=== PATIENT | male | born 1960 | race Caucasian/White ===

== ENCOUNTER → 2017-08-08 | Outpatient (CLI) | payer OTHER ==
[~2017-08-08] MED LIST: ACETAMINOPHEN; AKWA TEARS EYE15 ML OP; ALIGN4 MG PO; ALLEGRA180 MG PO; AMLODIPINE BESY10 MG; APAP500 PO; ARTIFICIAL TEA1 EACH OP; ASPIR 8181 MG PO; ASPIRIN81 MG PO; CALCIUM CITRAT1 EA14 PO; CARDIZEM CD240 MG PO; CARVEDILOL3.125 MG PO; CIPROFLOXACIN500 M1 PO; CITRACAL-VIT D1 EACH PO; CITRUS CALCIUM1 EACH PO; CLARITIN10 MG PO; CLOTRIMAZOLE 1%15 G1 TOP; COLESTID1 GM PO; DEBROX OT; DEEP SEA NASAL44 M1 NS; DEPO-TESTO200 MG/1 M; DEPO-TESTO200 MG/1 M IM; DICLOFENAC SODI75 MG PO; DULCOLAX5 MG PO; ELOCON15 GM TP; EUCERIN CREME120 GM TOP; EXPECTORAN100 MG/5 M PO; FLONASE 0.05%50 MCG NASAL; GLUCOPHAGE500 MG PO; HUMULIN 70100 UNIT/2 SC; HYDROCODONE-AP1 EAC6 PO; HYTRIN 5 M5 MG/1 CAP PO; IMODIUM A-D1 MG/5 ML PO; IRON325 PO; KETOCONAZOLE15 GM TOP; KLOR-CON 1010 MEQ PO; LANTUS SC; LANTUS100 UNIT/M SUBQ; LANTUSSOLASTAR; LASIX 20 MG TAB20 MG PO; LEVAQUIN 500 M500 M2 PO; LEVAQUIN 750 M750 MG PO; LIPITOR10 MG PO; LISINOPRIL10 MG PO; LISINOPRIL20 MG PO; LOPERAMIDE 2 MG2 M1 PO; LOPERAMIDE2 MG PO; METAMUCIL PLUS1 EACH PO; METFORMIN 500500 MG PO; METFORMIN HCL500 MG PO; MINERIN CREME454 GM TP; MINIPRIN81 MG PO; MIRALAX17 GM PO; MOBIC15 MG PO; MUCINEX TA600 MG/TA2 PO; MUCINEX1200 MG PO; MUCINEX600 MG PO; NEOSPORIN OINTM15 GM TP; NORVASC5 MG PO; NOVOLIN 70100 UNIT/2 SQ; NOVOLOG100 UNIT/1; NOVOLOG100 UNIT/1 SC; NOVOLOG100 UNIT/1 SUBQ; NYAMYC15 GM TOP; OCUSOFT TP; ONDANSETRON HCL4 M2 PO; OSTERA TABLET1 EAC1 PO; OXCARBAZEPINE300 M1 PO; PEPTO-BISM262 MG/15 PO; PRILOSEC OTC20 MG PO; PRINIVIL20 MG PO; PROZAC20 MG PO; RISPERDAL2 MG PO; ROBITUSSIN100 MG/53 PO; SELRX180 ML TP; TOBRADEX EYE O3.5 GM OPHTHALMIC; TOBRAMYCIN SULFA5 ML OP; TOBRAMYCIN-DEXAM5 ML OP; TRAMADOL 50 MG50 MG PO; TRAZODONE HCL50 MG PO; TRIAMCINOLONE 080 G3 TOP; TRILEPTAL 300300 MG PO; VITAMIN D31000 UNI1 PO; VITAMIN D32000 UNIT PO; VITAMIN D3400 UNIT PO; VITAMIN D400 UNI1 PO; XARELTO15 MG PO; XARELTO20 MG PO; ZOCOR20 MG PO; ZOCOR40 MG PO; [UNRECOGNIZED DRUG - OTHER] TOP
--- NOTE | ~2017-08-08 | 2DMMODE ---
[facility] [place] [address] 2 D/M-MODE ECHOCARDIOGRAM Name: ANJELICA CAMERON Room #: REG COUNT INCLUDES [facility] [id number] Admission: 08/08/17 Attend Phys: Dick Brewster Discharge: Date of : 56 Date of Service: 08/08/17 1421 Report #: [id number] THIS REPORT FOR: //name// APPROVED REPORT Study performed: 08/08/2017 13:23:58 EXAM: Comprehensive 2D, Doppler, and color-flow Echocardiogram Patient Location: Out-Patient Status: routine BSA: 1.67 HR: 83 bpm BP: 164/62 mmHg Rhythm: NSR Other Information Study Quality: Adequate/mental retardation. Good compliance Indications Palpitations. HTN. Cardiomyopathy. 2D Dimensions RVDd: 32.30 mm LVEF(%): 29.95 (>50%) IVSd: 10.38 (7-11mm) LVOT Diam: 21.16 (18-24mm) LVDd: 44.20 mm PWd: 9.88 (7-11mm) Ascending Ao: 28.36 (22-36mm) LVDs: 38.03 (25-40mm) Aortic Root: 28.96 mm Heck's LVEF: 29.95 % Volumes Left Atrial Volume (Systole) Single Plane 4CH: 33.18 mL Single Plane 2CH: 40.49 mL LA ESV Index: 23.00 mL/m2 Aortic Valve AoV Peak Terrance.: 1.21 m/s AO Peak Gr.: 6.36 mmHg LVOT Max P.28 mmHg LVOT Max V: 0.76 m/s VU Vmax: 2.20 cm2 Mitral Valve E/A Ratio: 0.[address] [facility] [place] [address] [place] [address] 2 D/M-MODE ECHOCARDIOGRAM Name: RAKESHANJELICA [place] Room [facility] [id number] Admission: 08/08/17 Attend Phys: Dick Brewster Discharge: Date of : 56 Date of Service: 08/08/17 1421 Report #: [id number] MV Decel. Time: 120.34 ms MV E Max Terrance.: 0.65 m/s MV A Terrance.: 1.03 m/s MV PHT: 34.90 ms IVRT: 72.66 ms Pulmonary Valve PV Peak Terrance.: 1.30 m/s PV Peak Gr.: 6.74 mmHg Pulmonary Vein P Vein S: 0.55 m/s P Vein D: 0.38 m/s P Vein S/D Ratio: 1.45 Tricuspid Valve TR Peak Terrance.: 2.48 m/s TR Peak Gr.: 24.61 mmHg Left Ventricle The left ventricle is normal size. Regional wall motion abnormalities are noted. There is normal left ventricular wall thickness. Left ventricular systolic function is mild to moderately decreased. LVEF is 40-45%. Mild diastolic dysfunction is present (impaired relaxation pattern). Right Ventricle Right ventricle is not well visualized but appears grossly normal. Atria The left atrium size is normal. The right atrium size is normal. Aortic Valve The Aortic valve is mildly sclerotic. No aortic regurgitation is present. There is no aortic valvular stenosis. Mitral Valve Mitral valve leaflets are mildly thickened. Mild mitral regurgitation. No evidence of mitral valve stenosis. Tricuspid Valve The tricuspid valve is normal in structure. Mild to moderate tricuspid regurgitation. Estimated PAP is 25mmHg plus the right atrial pressure. [facility] [address] [place] [address] 2 D/M-MODE ECHOCARDIOGRAM Name: ANJELICA CAMERON RAQUEL Room #: REG Stephenie#: [id number] Admission: 08/08/17 Attend Phys: Dick Brewster Discharge: Date of : 56 Date of Service: 08/08/17 1421 Report #: [id number] Pulmonic Valve The pulmonary valve is normal in structure. Mild pulmonic regurgitation. Great Vessels The aortic root is normal in size. The ascending aorta is normal in size. The inferior vena cava is not well visualized. Pericardium No echocardiographic evidence of tamponade physiology <Conclusion> The left ventricle is normal size. LVEF is 40-45%. Regional wall motion abnormalities are noted. Right ventricle is not well visualized but appears grossly normal. The Aortic valve is mildly sclerotic. Mitral valve leaflets are mildly thickened. Mild mitral regurgitation. The tricuspid valve is normal in structure. Mild to moderate tricuspid regurgitation. Estimated PAP is 25mmHg plus the right atrial pressure. The pulmonary valve is normal in structure. Mild pulmonic regurgitation. No echocardiographic evidence of tamponade physiology <ELECTRONICALLY SIGNED> By: Jesus Chandler MD 08/08/17 1421 [id number] Jesus Chandler MD /INF
== END ==
LOC: CV 10:30
DX: I08.1 Rheumatic disorders of both mitral and tricuspid valves (principal); I10 Essential (primary) hypertension; I42.9 Cardiomyopathy, unspecified; I95.9 Hypotension, unspecified; E11.65 Type 2 diabetes mellitus with hyperglycemia; I63.9 Cerebral infarction, unspecified

== ENCOUNTER 2017-11-02 09:19 | Emergency (ER) | payer OTHER ==
[~2017-11-02] VITALS: Ht 157.5 cm; Wt 54.0 kg
[~2017-11-02 09:19] MED LIST changes: -ALIGN4 MG PO; -COLESTID1 GM PO; -EUCERIN CREME120 GM TOP; -IRON325 PO; -KETOCONAZOLE15 GM TOP; -LEVAQUIN 750 M750 MG PO; -METAMUCIL PLUS1 EACH PO; -MUCINEX1200 MG PO; -ONDANSETRON HCL4 M2 PO; -PROZAC20 MG PO; -TRAZODONE HCL50 MG PO; -[UNRECOGNIZED DRUG - OTHER] TOP
== END 2017-11-02 11:36 | disposition home or self-care (01) ==
LOC: ER 09:19
DX: S01.81XA Laceration without foreign body of other part of head, initial encounter (principal); I10 Essential (primary) hypertension; E11.9 Type 2 diabetes mellitus without complications; Z23 Encounter for immunization; W06.XXXA Fall from bed, initial encounter; Y93.89 Activity, other specified; Y92.89 Other specified places as the place of occurrence of the external cause; Y99.8 Other external cause status

== ENCOUNTER 2018-01-03 09:40 | Inpatient (IN) | payer OTHER ==
[2018-01-03] VITALS (7 sets, daily range): BP systolic 104–162; BP diastolic 55–79
[~2018-01-03] VITALS: Ht 152.4 cm; Wt 61.2 kg
--- NOTE | ~2018-01-03 | EKG ---
[address] [place] [address] ELECTROCARDIOGRAM REPORT Name: ANJELICA CAMERON EDRAQUEL Room #: 359-P ADM IN M.R.#: [id number] Admission: 01/03/18 Attend Phys: Celso Fermin MD Discharge: Date of : 56 Report #: [id number] THIS REPORT FOR: //name// [facility] ED Test Date: 2018-01-03 Test Time: 11:10:35 Pat Name: ANJELICA CAMERON Department: Room: Gender: M Loan Supervisor: : 1960 Requested By: Rober Sandoval Order Number: [id number] MD: Eber Loredo Measurements Intervals [place] Rate: 97 P: 56 NC: 208 QRS: -22 QRSD: 94 T: 70 QT: 356 QTc: 452 Interpretive Statements Sinus rhythm Prolonged NC interval Nonspecific ST and T wave abnormality Compared to ECG 05/01/2017 15:00:09 First degree AV block now present Sinus tachycardia no longer present Electronically Signed On 01-03-2018 16:55:07 CDT by Eber Loredo [email or web address] <ELECTRONICALLY SIGNED> By: Eber Loredo MD, FACC 01/03/18 1655 1110 1110 Eber Loredo MD, [facility] /EPI
[2018-01-03 10:42] LABS: HEMATOCRIT 38.3 % (42.0-52.0); HEMOGLOBIN 12.8 gm/dL (14.0-18.0); MCH 30.8 pg (26.0-34.0); MCHC 33.4 g/dL (28.0-37.0); MCV 92.3 fL (80.0-100.0); PLATELET COUNT 196 thou/uL (150-400); RBC 4.15 mil/uL (4.50-6.00); RDW 13.3 % (10.5-14.5); WBC 8.9 thou/uL (4.0-11.0)
[2018-01-03 11:34] LABS: URINE BILIRUBIN NEGATIVE (Negative); URINE BLOOD NEGATIVE (Negative); URINE CLARITY CLEAR; URINE COLOR YELLOW; URINE GLUCOSE-RANDOM* NEGATIVE (Negative); URINE KETONES TRACE (Negative); URINE LEUKOCYTES-REFLEX NEGATIVE (Negative); URINE NITRITE-REFLEX NEGATIVE (Negative); URINE PROTEIN (DIPSTICK) NEGATIVE (Negative); URINE SPECIFIC GRAVITY 1.025 (1.005-1.035); URINE UROBILINOGEN 0.2 E.U./dl (0.2-1.0)
[2018-01-03 12:10] LABS: ABSOLUTE NEUTROPHILS 6.5 thou/uL (1.4-8.2); PLATELET ESTIMATE NORMAL
[2018-01-03 12:13] LABS: CALCIUM 8.4 mg/dL (8.5-10.1)
[2018-01-03 12:18] LABS: ALBUMIN 3.1 g/dL (3.4-5.0); TOTAL BILIRUBIN 0.2 mg/dL (<0.1-1.0); TOTAL PROTEIN 5.9 g/dL (6.4-8.2)
[2018-01-03] MEDS ORDERED: COLESTID1 GM PO (12:26)
[2018-01-03] MEDS ORDERED: PROZAC20 MG PO (12:27)
[2018-01-03] MEDS ORDERED: EUCERIN CREME120 GM TOP (12:41)
[2018-01-03] MEDS ORDERED: LISINOPRIL10 MG PO (12:41)
[2018-01-03] MEDS ORDERED: TRAZODONE HCL50 MG PO (12:48)
[2018-01-03] MEDS ORDERED: [UNRECOGNIZED DRUG - OTHER] TOP (12:48)
[2018-01-03] MEDS ORDERED: IRON325 PO (12:49)
[2018-01-03] MEDS ORDERED: ALIGN4 MG PO (12:49)
[2018-01-03] MEDS ORDERED: METAMUCIL PLUS1 EACH PO (12:50)
[2018-01-03] MEDS ORDERED: KETOCONAZOLE15 GM TOP (12:51)
[2018-01-03] MEDS ORDERED: MIRALAX17 GM PO (12:52)
[2018-01-03] MEDS ORDERED: ONDANSETRON HCL4 M2 PO (12:52)
[2018-01-03 13:52] LABS: BE(vivo) -1.9 mmol/L (-2 to +3); PCO2 45.4 mmHg (35.0-45.0); PO2 65.5 mmHg (80.0-100.0); pH 7.341 (7.360-7.450); sO2 91.7 % (92.0-98.0)
[2018-01-03 15:46] LABS: ALBUMIN 2.9 g/dL (3.4-5.0); TOTAL PROTEIN 5.8 g/dL (6.4-8.2)
[2018-01-03 16:13] LABS: TSH 0.9 uIU/mL (0.358-3.740)
[2018-01-04 04:32] VITALS: BP 147/70
[2018-01-04 07:17] VITALS: BP 162/83
[2018-01-04 07:53] LABS: HEMOGLOBIN 13.1 gm/dL (14.0-18.0); MCH 30.4 pg (26.0-34.0); MCHC 32.8 g/dL (28.0-37.0); MCV 92.6 fL (80.0-100.0); RBC 4.32 mil/uL (4.50-6.00); RDW 13.7 % (10.5-14.5); WBC 5.4 thou/uL (4.0-11.0)
[2018-01-04 08:26] LABS: CALCIUM 8.4 mg/dL (8.5-10.1); CREATININE 0.7 mg/dL (0.7-1.3); MAGNESIUM 1.2 mg/dL (1.8-2.4); POTASSIUM 4.4 mmol/L (3.5-5.1)
[2018-01-04 11:44] VITALS: BP 162/75
[2018-01-04 15:30] VITALS: BP 135/65
[2018-01-04 19:10] VITALS: BP 182/93
[2018-01-04 23:35] VITALS: BP 171/79
[2018-01-05 04:43] VITALS: BP 130/73
[2018-01-05 06:03] LABS: HEMATOCRIT 41.4 % (42.0-52.0); HEMOGLOBIN 13.8 gm/dL (14.0-18.0); MCH 30.5 pg (26.0-34.0); MCHC 33.2 g/dL (28.0-37.0); MCV 91.7 fL (80.0-100.0); RBC 4.52 mil/uL (4.50-6.00); RDW 13.5 % (10.5-14.5); WBC 6.7 thou/uL (4.0-11.0)
[2018-01-05 07:52] VITALS: BP 139/53
[2018-01-05 09:21] LABS: CALCIUM 8.8 mg/dL (8.5-10.1); CREATININE 0.8 mg/dL (0.7-1.3); MAGNESIUM 1.2 mg/dL (1.8-2.4)
[2018-01-05 15:45] VITALS: BP 98/52
[2018-01-05 20:30] VITALS: BP 158/74
[2018-01-06 00:20] VITALS: BP 178/73
[2018-01-06 05:20] VITALS: BP 130/70
[2018-01-06 05:51] LABS: HEMATOCRIT 37.2 % (42.0-52.0); HEMOGLOBIN 12.3 gm/dL (14.0-18.0); MCH 30.4 pg (26.0-34.0); MCHC 33.2 g/dL (28.0-37.0); MCV 91.8 fL (80.0-100.0); RBC 4.05 mil/uL (4.50-6.00); RDW 13.6 % (10.5-14.5); WBC 6.5 thou/uL (4.0-11.0)
[2018-01-06 06:03] LABS: CALCIUM 8.6 mg/dL (8.5-10.1); CREATININE 0.7 mg/dL (0.7-1.3); MAGNESIUM 1.5 mg/dL (1.8-2.4); POTASSIUM 4.5 mmol/L (3.5-5.1)
[2018-01-06 07:10] VITALS: BP 173/81
[2018-01-06] MEDS ORDERED: LEVAQUIN 750 M750 MG PO (10:12)
[2018-01-06] MEDS ORDERED: MUCINEX1200 MG PO (10:18)
== END 2018-01-06 14:25 | disposition home or self-care (01) | DRG 871 ==
LOC: ER 09:40 → 3W 11:53 → EROBS 11:53 → 3W 15:41
PROVIDERS: Emergency Medicine; Internal Medicine
DX: A41.9 Sepsis, unspecified organism (principal); J18.9 Pneumonia, unspecified organism; E87.2 Acidosis; H54.7 Unspecified visual loss; I50.9 Heart failure, unspecified; R19.7 Diarrhea, unspecified; I11.0 Hypertensive heart disease with heart failure; F79 Unspecified intellectual disabilities; R65.20 Severe sepsis without septic shock; E78.5 Hyperlipidemia, unspecified; R62.50 Unspecified lack of expected normal physiological development in childhood; E11.65 Type 2 diabetes mellitus with hyperglycemia; Z86.711 Personal history of pulmonary embolism; Z86.73 Personal history of transient ischemic attack (TIA), and cerebral infarction without residual deficits; Z79.01 Long term (current) use of anticoagulants; Z79.4 Long term (current) use of insulin; Z79.84 Long term (current) use of oral hypoglycemic drugs; Z79.899 Other long term (current) drug therapy
CPT/HCPCS: 10879

== ENCOUNTER 2019-06-25 16:06 | Emergency (ER) | payer OTHER ==
[~2019-06-25] VITALS: Ht 167.6 cm; Wt 68.0 kg
[~2019-06-25 16:06] MED LIST changes: +ALIGN4 MG PO; +COLESTID1 GM PO; +EUCERIN CREME120 GM TOP; +IRON325 PO; +KETOCONAZOLE15 GM TOP; +LEVAQUIN 750 M750 MG PO; +METAMUCIL PLUS1 EACH PO; +MUCINEX1200 MG PO; +ONDANSETRON HCL4 M2 PO; +PROZAC20 MG PO; +TRAZODONE HCL50 MG PO; +[UNRECOGNIZED DRUG - OTHER] TOP
[2019-06-25 17:09] VITALS: BP 174/72
== END 2019-06-25 17:57 | disposition home or self-care (01) ==
LOC: ER 16:06
DX: S82.844A Nondisplaced bimalleolar fracture of right lower leg, initial encounter for closed fracture (principal); I10 Essential (primary) hypertension; Z86.73 Personal history of transient ischemic attack (TIA), and cerebral infarction without residual deficits; W00.9XXA Unspecified fall due to ice and snow, initial encounter; Y93.89 Activity, other specified; Y92.89 Other specified places as the place of occurrence of the external cause; Y99.8 Other external cause status

== ENCOUNTER 2020-01-24 20:15 | Emergency (ER) | payer OTHER ==
[~2020-01-24] VITALS: Ht 157.5 cm; Wt 59.0 kg
[2020-01-24] MEDS ORDERED: MULTIVITAMINS1 EAC7 PO (20:22)
[2020-01-24] MEDS ORDERED: OXTELLAR XR300 MG PO (20:23)
[2020-01-24] MEDS ORDERED: FLOMAX0.4 MG PO (21:11)
[2020-01-24] MEDS ORDERED: VITAMIN D3 COM1 EACH PO (21:14)
[2020-01-24] MEDS ORDERED: XARELTO20 MG PO (21:15)
[2020-01-24] MEDS ORDERED: ALIGN4 MG PO (21:16)
[2020-01-24] MEDS ORDERED: MAPAP500 M1 PO (21:18)
[2020-01-24] MEDS ORDERED: HYDROCODON-ACE1 EAC7 PO (21:19)
[2020-01-24] MEDS ORDERED: ZUPLENZ8 MG SUBLING (21:22)
[2020-01-24] MEDS ORDERED: LEVEMIR FL100 UNIT/2 SUBQ (21:24)
[2020-01-24 21:57] VITALS: BP 182/82
== END 2020-01-24 21:58 ==
LOC: ER 20:15
DX: S91.115A Laceration without foreign body of left lesser toe(s) without damage to nail, initial encounter (principal); I10 Essential (primary) hypertension; E11.9 Type 2 diabetes mellitus without complications; Z79.899 Other long term (current) drug therapy; Z79.4 Long term (current) use of insulin; X58.XXXA Exposure to other specified factors, initial encounter; Y93.89 Activity, other specified; Y92.89 Other specified places as the place of occurrence of the external cause; Y99.8 Other external cause status

== ENCOUNTER → 2020-03-31 | Outpatient (CLI) | payer OTHER ==
[~2020-03-31] MED LIST changes: +FLOMAX0.4 MG PO; +HYDROCODON-ACE1 EAC7 PO; +LEVEMIR FL100 UNIT/2 SUBQ; +MAPAP500 M1 PO; +MULTIVITAMINS1 EAC7 PO; +OXTELLAR XR300 MG PO; +VITAMIN D3 COM1 EACH PO; +ZUPLENZ8 MG SUBLING
== END ==
LOC: SJCVC 13:20
PROVIDERS: ATTEND Internal Medicine Cardiovascular Disease
DX: R94.31 Abnormal electrocardiogram [ECG] [EKG] (principal); I44.0 Atrioventricular block, first degree; I63.9 Cerebral infarction, unspecified; I42.9 Cardiomyopathy, unspecified

== ENCOUNTER 2020-05-14 13:27 | Emergency (ER) | payer OTHER ==
[~2020-05-14] VITALS: Ht 167.6 cm; Wt 59.4 kg
[2020-05-14 14:33] LABS: URINE BILIRUBIN NEGATIVE (Negative); URINE BLOOD 2+ (Negative); URINE CLARITY CLEAR; URINE COLOR YELLOW; URINE GLUCOSE-RANDOM* NEGATIVE (Negative); URINE KETONES NEGATIVE (Negative); URINE LEUKOCYTES-REFLEX NEGATIVE (Negative); URINE NITRITE-REFLEX NEGATIVE (Negative); URINE PROTEIN (DIPSTICK) 2+ (Negative); URINE SPECIFIC GRAVITY >= 1.030 (1.005-1.035)
[2020-05-14 14:46] LABS: MUCUS 0-3 Light strn/LPF (None Seen); SQUAMOUS 0-3 Few /LPF (0-3)
[2020-05-14 14:47] LABS: BACTERIA-REFLEX None Seen /HPF (None Seen); CASTS None Seen /LPF (None Seen); CRYSTALS None Seen /LPF (None Seen); URINE RBC >20 Many /HPF (0-2); URINE WBC-REFLEX 0-5 Rare /HPF (0-5)
[2020-05-14] MEDS ORDERED: DIFLUCAN150 MG PO (15:15)
[2020-05-14 15:21] VITALS: BP 130/60
== END 2020-05-14 15:21 | disposition home or self-care (01) ==
LOC: ER 13:27
PROVIDERS: Nurse Practitioner
DX: R31.9 Hematuria, unspecified (principal); N48.1 Balanitis; E11.9 Type 2 diabetes mellitus without complications; I10 Essential (primary) hypertension; Z86.73 Personal history of transient ischemic attack (TIA), and cerebral infarction without residual deficits; Z79.899 Other long term (current) drug therapy; Z79.4 Long term (current) use of insulin